=== PATIENT | female | born 2000 | race Two or more races ===

== ENCOUNTER 2018-01-10 00:17 | Emergency (ER) | payer SELFPAY ==
[2018-01-10] MEDS ORDERED: KETOROLAC TROMETHAMINE INJ/PF 30 MG/1 ML SDV IV ONE (04:05)
[2018-01-10] MEDS ORDERED: ONDANSETRON 4 MG TAB.RAPDIS PO ONE (04:05)
--- NOTE | 2018-01-10 05:39 | RADIOLOGY REPORT (SQ) ---
EXAM DESCRIPTION: CT HEAD WITHOUT IV CONTRAST COMPLETED DATE/TME: 01/10/2018 04:06 CLINICAL HISTORY: fall with possible loc COMPARISON: None available TECHNIQUE: Axial CT of the head obtained from the skull apex to the skull base without contrast. FINDINGS: No acute intracranial hemorrhage identified. No mass, mass effect, shift of the midline, abnormal extra-axial fluid collection or CT evidence of acute ischemic change identified. The ventricular system is unremarkable. No acute abnormalities of the supratentorial white matter, basal ganglia, cerebellum, or brainstem. The visualized paranasal sinuses and the mastoids are clear. No skull fracture identified. Visualized orbits and globes are unremarkable. DLP: 990.56 mGy-cm IMPRESSION: 1. No acute intracranial abnormality identified. This exam was performed according to our departmental dose-optimization program, which includes automated exposure control, adjustment of the mA and/or kV according to patient size and/or use of iterative reconstruction technique.
--- NOTE | 2018-01-10 05:42 | RADIOLOGY REPORT (SQ) ---
EXAM DESCRIPTION: CT CERVICAL SPINE WITHOUT IV CONTRAST COMPLETED DATE/TME: 01/10/2018 04:06 CLINICAL HISTORY: fall-neck pain COMPARISON: None available TECHNIQUE: Axial CT of the cervical spine obtained without contrast. FINDINGS: Alignment of the cervical spine is maintained without evidence of subluxation. The atlantoaxial, atlantodental, and occipitoatlantal intervals are preserved. No fracture identified. Vertebral body height preserved. Prevertebral soft tissues are unremarkable. Intervertebral disc height preserved. Visualized skull base is intact. No fracture of the visualized facial bones. Visualized mastoid air cells and paranasal sinuses are well aerated. Visualized thyroid is unremarkable. No cervical lymphadenopathy. No pneumothorax in the visualized lung apices. DLP: 388.22 mGy-cm IMPRESSION: 1. No acute fracture or subluxation of the cervical spine. This exam was performed according to our departmental dose-optimization program, which includes automated exposure control, adjustment of the mA and/or kV according to patient size and/or use of iterative reconstruction technique.
--- NOTE | 2018-01-10 05:43 | RADIOLOGY REPORT (SQ) ---
EXAM DESCRIPTION: XR SHOULDER 2 OR MORE VIEWS COMPLETED DATE/TME: 01/10/2018 04:06 CLINICAL HISTORY: fall, shoulder pain COMPARISON: FINDINGS: None.: 3 views of the left shoulder. No acute fracture or dislocation. Normal osseous mineralization. No acute abnormality left hemithorax. IMPRESSION: No acute fracture or dislocation
--- NOTE | 2018-01-10 05:53 | RADIOLOGY REPORT (SQ) ---
EXAM DESCRIPTION: XR THORACIC SPINE 2 VIEWS COMPLETED DATE/TME: 01/10/2018 04:07 CLINICAL HISTORY: 17 years, Female, fall, back pain COMPARISON: CT cervical spine performed same day. FINDINGS: Thoracic spine, 2 views. Pedicles identified throughout. No widening of the paraspinous lines. No acute abnormalities of visualized mediastinum or ribs. Motion artifact on lateral view however no definite subluxation or cortical step-off. T1 and T2 not well evaluated on lateral view however these vertebral levels are evaluated on CT of the cervical spine without abnormality. IMPRESSION: No acute abnormality of the thoracic spine by plain film criteria. 2010 [employer]- All Rights Reserved
--- NOTE | 2018-01-10 05:54 | RADIOLOGY REPORT (SQ) ---
EXAM DESCRIPTION: XR LUMBAR SPINE ANTEROPOSTERIOR, LATERAL, AND OBLIQUES COMPLETED DATE/TME: 01/10/2018 04:07 CLINICAL HISTORY: 17 years, Female, fall, back pain COMPARISON: None. FINDINGS: 5 views of the lumbar spine. 5 nonrib-bearing lumbar vertebrae. Transitional S1 vertebral body. Pedicles identified throughout. Vertebral body height and intervertebral disc height preserved. No subluxation. No cortical step-offs. Abdominal soft tissues are unremarkable. No definite abnormalities of the sacrum. IMPRESSION: No acute abnormality of the lumbar spine by plain film criteria. 2010 [employer]- All Rights Reserved
[2018-01-10] MEDS ORDERED: HYDROCODONE/ACETAMINOPHEN 5-325 MG (6 TAB/ER DISP) PO PRN (06:02)
--- NOTE | 2018-01-10 06:02 | ER Document Report ---
ED Fall - General Chief Complaint: Fall Injury Stated Complaint: FALL,SHOULDER PAIN Time Seen by Provider: 01/10/18 03:42 Mode of Arrival: Medic Information source: Patient, Relative Notes: Patient is a 17-year-old female who presents via EMS after a fall. Patient reports that she tripped over her dog and fell striking the left side of her head and body onto concrete. Patient reports that she lost consciousness. Patient denies any episodes of vomiting. Patient's is at bedside reports that she was unconscious for about 5 minutes. - Related data Allergies/Adverse Reactions: No Known Allergies Allergy (Unverified 01/10/18 00:22) Past Medical History - General Information source: Patient - Social History Smoking Status: Never Smoker Chew tobacco use (# tins/day): No Frequency of alcohol use: None Drug Abuse: None Family History: Reviewed & Not Pertinent Patient has suicidal ideation: No Patient has homicidal ideation: No - Medical History Medical History: Negative Renal/ Medical History: Denies: Hx Peritoneal Dialysis Surgical Hx: Negative - Immunizations Immunizations up to date: Yes Hx Diphtheria, Pertussis, Tetanus Vaccination: Yes Review of Systems - Review of Systems Constitutional: No symptoms reported EENT: No symptoms reported Cardiovascular: No symptoms reported Respiratory: No symptoms reported Gastrointestinal: No symptoms reported Genitourinary: No symptoms reported Female Genitourinary: No symptoms reported Musculoskeletal: See HPI Skin: No symptoms reported Hematologic/Lymphatic: No symptoms reported Neurological/Psychological: No symptoms reported Physical Exam - Vital signs Vitals: Temp Pulse Resp BP Pulse Ox 98.4 F 72 20 115/71 99 01/10/18 01:00 01/10/18 01:00 01/10/18 01:00 01/10/18 01:00 01/10/18 01:00 - Notes Notes: PHYSICAL EXAMINATION: GENERAL: Well-appearing, well-nourished and in no acute distress. HEAD: Atraumatic, normocephalic. EYES: Pupils equal round and reactive to light, extraocular movements intact, conjunctiva are normal. ENT: Nares patent, oropharynx clear without exudates. Moist mucous membranes. NECK: Normal range of motion, supple without lymphadenopathy LUNGS: Breath sounds clear to auscultation bilaterally and equal. No wheezes rales or rhonchi. HEART: Regular rate and rhythm without murmurs ABDOMEN: Soft, nontender, nondistended abdomen. No guarding, no rebound. No masses appreciated. Female : deferred Musculoskeletal: TTP to left shoulder, and thoracic to lumbar spine. Normal range of motion, no pitting or edema. No cyanosis. NEUROLOGICAL: Cranial nerves grossly intact. Normal speech, normal gait. Normal sensory, motor exams PSYCH: Normal mood, normal affect. SKIN: Warm, Dry, normal turgor, no rashes or lesions noted. Course - Re-evaluation Re-evalutation: 17-year-old otherwise healthy female reports that she tripped and fell striking the left side of her head on concrete. Patient has pain all along her spine as well as her left side. CT head and C-spine are unremarkable. X-rays to patient 's left shoulder, thoracic and lumbar spine are all negative for any fractures or dislocations. Patient will be discharged home with prescription for Flexeril and ibuprofen. Patient instructed to use ice on the areas of discomfort. Patient will follow up with her primary care provider in the next 3 -5 days or sooner if her pain worsens. - Vital Signs Vital signs: Temp Pulse Resp BP Pulse Ox 97.8 F 82 18 115/62 100 01/10/18 07:09 01/10/18 07:09 01/10/18 07:09 01/10/18 07:09 01/10/18 07:09 Discharge - Discharge Clinical Impression: Fall Qualifiers: Encounter type: initial encounter Qualified Code(s): W19.XXXA - Unspecified fall, initial encounter Back pain Qualifiers: Back pain location: back pain in unspecified location Chronicity: acute Back pain laterality: unspecified Qualified Code(s): M54.9 - Dorsalgia, unspecified Condition: Stable Disposition: HOME, SELF-CARE Additional Instructions: Head Injury Precautions At this point, there is no evidence that your head injury is serious. Observation is necessary, however. Take only clear liquids for the first few hours, unless told otherwise by the doctor. If no pain medication was prescribed, you may take acetaminophen according to the directions on the bottle. Do not take any medication that may alter your level of alertness (unless you've discussed it with the doctor first) . Limit activity for the first 24 hours. Bed rest is best. During the first 24 hours, check to see approximately every two to three hours that the patient is easily arousable, responds normally, and can perform common tasks such as walking without difficulty. Contact your doctor or go to the hospital if any of the following things occur: Persistent vomiting, difficulty in arousing the patient, worsening or continued headache, or failure to improve as expected. Head injuries can cause symptoms that persist for a few days or even a few weeks. Muscle Strain You have strained a muscle -- torn the fibers within the muscle. This often occurs with strenuous exertion, or during an injury that suddenly stretches the muscle. The seriousness of a strain varies. Some strains heal within days, others cause problems for months. X-rays cannot show a muscle strain. X-rays are taken only if symptoms suggest that a fracture could be present. The usual treatment of a muscle strain is rest and ice packs. Sometimes, a sling, splint, or crutches may be necessary to rest the muscle. The muscle can be used again once pain subsides. Severe strains require a special exercise and stretching program to prevent permanent stiffness and disability. Your doctor will advise you if this will be necessary. Call the doctor immediately if pain or swelling becomes severe, or if numbness or discoloration develop. Muscle Relaxers Muscle relaxing medications are usually prescribed for acute muscle spasm or injury to the neck and back. They are often combined with antiinflammatory pain medication for increased relief. You may stop the muscle relaxer when the pain and stiffness have improved. Start the medication again if spasms recur. Muscle relaxers may cause drowsiness, especially with the first dose. Do not operate machinery or drive while under the effects of the medication. Most muscle relaxers last up to 24 hours. Do not combine the medication with alcohol. Ibuprofen Ibuprofen is an excellent, safe drug for pain control. In addition, it has potent antiinflammatory effects which are beneficial, especially in the treatment of injuries, arthritis, or tendonitis. It's best to take ibuprofen with food. Persons with ulcer disease or allergy to aspirin should notify their physician of this before taking ibuprofen. Take the medication exactly as prescribed. Don't take additional doses unless instructed to do so by your doctor. If you develop wheezing, shortness of breath, hives, faintness, stomach pain, vomiting, or dark black stools, return for re-evaluation at once. Your x-rays and CAT scans today were normal. You do not have any fractures or dislocations. Please take acetaminophen or ibuprofen as needed for pain or headache. Please use the muscle relaxers as needed to aid with the musculoskeletal pain and spasms. We will likely hurt worse today. Please follow-up with your primary care doctor in the next 24-48 hours for a recheck, return to the emergency department if you develop worsening pain. Prescriptions: Cyclobenzaprine HCl [Flexeril 10 mg Tablet] 10 mg PO Q8 PRN #20 tablet PRN Reason: Muscle Spasms Ibuprofen 800 mg PO Q8 PRN #30 tablet PRN Reason: For Pain
[2018-01-10 07:11] VITALS: BP 115/62
== END 2018-01-10 07:10 | disposition home or self-care (01) ==
LOC: ER 00:17
DX: S09.90XA Unspecified injury of head, initial encounter (principal); M54.9 Dorsalgia, unspecified; W01.10XA Fall on same level from slipping, tripping and stumbling with subsequent striking against unspecified object, initial encounter
CPT/HCPCS: 99284; 96374; 72110; 73030; 72070; 70450; 72125; S0119; J1885